=== PATIENT | male | born 1960 | race Caucasian/White ===

== ENCOUNTER 2016-11-11 22:26 | Observation (INO) | payer OTHER ==
[2016-11-11 22:35] VITALS: BMI 31.9
[2016-11-11] MEDS ORDERED: Morphine 2 mg/ml ISec IVP STA (22:43)
[2016-11-11] MEDS ORDERED: Aspirin 325 mg EC Tablets PO STA (22:43)
--- NOTE | 2016-11-11 22:58 | ED PDOC ---
Arrival/HPI - General Historian: Patient, Spouse - History of Present Illness Time/Duration: Prior to Arrival Symptom Onset: Sudden Symptom Course: Worsening Quality: Aching, Pressure Severity Level: Severe Activities at Onset: Rest Context: Home <Micaela Pennington - Last Filed: 11/12/16 00:54> <Félix Card - Last Filed: 11/12/16 01:25> - General Chief Complaint: Chest Pain Time Seen by Provider: 11/11/16 22:28 - History of Present Illness Narrative History of Present Illness (Text): 11/11/16 22:59 This is a 56Y M with PMH HTN, dyslipidemia, GERD, asthma here for sudden L sided chest pain. He reports he was sitting at home playing on phone when the pain occurred. He reports it radiates down into his L arm. He also complains of headache and epigastric abdominal pain. He denies vision changes, SOB, n/v/d, numbness/tingling, fever or chills. The pain is worse when lying on his L side. (Micaela Pennington) Past Medical History - Provider Review Nursing Documentation Reviewed: Yes - Travel History Have you recently traveled outside [place] w/in the past 3 mons?: No - Tetanus Immunization Tetanus Immunization: Unknown - Cardiac Hx Cardiac Disorders: Yes (chest pain) Hx Hypertension: Yes - Renal Hx Kidney Stones: Yes - Musculoskeletal/Rheumatological Hx Back Pain: Yes (x 3 yrs) Hx Falls: No Hx Herniated Disk: Yes (work related x3 yrs) - Gastrointestinal Hx Gastrointestinal Disorders: Yes (gastritis) Hx Gastroesophageal Reflux: Yes - Psychiatric Hx Depression: No Hx Emotional Abuse: No Hx Physical Abuse: No Hx Substance Use: No - Past Surgical History Past Surgical History: No Previous - Suicidal Assessment Feels Threatened In Home Enviroment: No <Micaela Pennington - Last Filed: 11/12/16 00:54> Family/Social History - Physician Review Nursing Documentation Reviewed: Yes Family/Social History: Hypertension Smoking Status: Heavy Smoker > 10 Cigarettes Daily Hx Alcohol Use: No Hx Substance Use: No Hx Substance Use Treatment: No <Micaela Pennington - Last Filed: 11/12/16 00:54> Allergies/Home Meds <Micaela Pennington - Last Filed: 11/12/16 00:54> <Félix Card - Last Filed: 11/12/16 01:25> Allergies/Adverse Reactions: Allergies No Known Allergies Allergy (Verified 05/18/14 12:57) Home Medications: Home Meds Medication Instructions Recorded Confirmed Aspirin [Aspirin Chewable] 81 mg PO DAILY 05/18/14 05/18/14 Multivitamin [Multiple Vitamins] 1 tab PO DAILY 05/18/14 05/18/14 Advair Diskus 250/50 05/19/14 05/19/14 Famotidine [Pepcid] 40 PO HS 05/19/14 05/19/14 Hydrochlorothiazide [HCTZ] 12.5 mg PO DAILY 05/19/14 05/19/14 Lansoprazole [Prevacid] 30 PO DAILY 05/19/14 05/19/14 Tramadol Hydrochloride [Tramadol] 50 PO BID 05/19/14 05/19/14 amLODIPine [Norvasc] 5 mg PO DAILY 05/19/14 05/19/14 Review of Systems - Physician Review All systems were reviewed & negative as marked: Yes - Review of Systems Constitutional: Normal. absent: Fatigue, Fevers Eyes: Normal. absent: Vision Changes ENT: Normal. absent: Hearing Changes Respiratory: Normal. absent: SOB, Cough Cardiovascular: Chest Pain Gastrointestinal: Abdominal Pain. absent: Nausea, Vomiting Musculoskeletal: Normal. absent: Arthralgias, Back Pain Skin: Normal. absent: Rash, Pruritis Neurological: Headache. absent: Dizziness Endocrine: Normal. absent: Diaphoresis Psychiatric: Normal. absent: Anxiety, Depression <Micaela Pennington - Last Filed: 11/12/16 00:54> Physical Exam Vital Signs Reviewed: Yes Temperature: Afebrile Blood Pressure: Hypertensive Pulse: Regular Respiratory Rate: Normal Appearance: Positive for: Well-Appearing, Non-Toxic, Comfortable Pain Distress: None Mental Status: Positive for: Alert and Oriented X 3 - Systems Exam Head: Present: Atraumatic, Normocephalic Pupils: Present: PERRL Extroacular Muscles: Present: EOMI Conjunctiva: Present: Normal Mouth: Present: Moist Mucous Membranes Neck: Present: Normal Range of Motion Respiratory/Chest: Present: Clear to Auscultation, Good Air Exchange, Tender to Palpation (on L side of chest ). No: Respiratory Distress, Accessory Muscle Use Cardiovascular: Present: Regular Rate and Rhythm, Normal S1, S2, Other. No: Murmurs Abdomen: Present: Tenderness (epigastric tenderness ), Normal Bowel Sounds. No : Distention, Peritoneal Signs Back: Present: Normal Inspection Upper Extremity: Present: Normal Inspection. No: Cyanosis, Edema Lower Extremity: Present: Normal Inspection. No: Edema Neurological: Present: GCS=15, CN II-XII Intact, Speech Normal Skin: Present: Warm, Dry, Normal Color. No: Rashes Psychiatric: Present: Alert, Oriented x 3, Normal Insight, Normal Concentration <Micaela Pennington - Last Filed: 11/12/16 00:54> <Félix Card - Last Filed: 11/12/16 01:25> Vital Signs Temp Pulse Resp BP Pulse Ox 11/11/16 23:28 78 20 142/88 96 11/11/16 22:36 97.9 F 77 18 161/101 H 100 Medical Decision Making Re-evaluation Time: 23:45 Reassessment Condition: Improved - Lab Interpretations I have reviewed the lab results: Yes Interpretation: All labs normal - EKG Interpretation Interpreted by ED Physician: Yes Type: 12 lead EKG <GorgeEricMicaela - Last Filed: 11/12/16 00:54> - Lab Interpretations I have reviewed the lab results: Yes - EKG Interpretation Interpreted by ED Physician: Yes Type: 12 lead EKG <KyawFélix - Last Filed: 11/12/16 01:25> ED Course and Treatment: 11/11/16 23:02 Impression: This is a 56Y M with PMH HTN, dyslipidemia, GERD, asthma here for sudden L sided chest pain. Differential Diagnosis included but are not limited to: chest pain r/o ACS Plan: -- EKG -- CXR -- CBC, CMP, Cardiac ISO -- ASA, Morphine -- Reassess and disposition EKG: Ordered, reviewed, and independently interpreted the EKG. Rate : 78 BPM Rhythm : NSR Interpretation : No ST-segment elevations or depressions, no T-wave inversions, normal intervals. Comparison : Similar to previous EKG. Progress Notes: 11/11/16 23:02 Patient reports symptoms have improved, but has headache. Tylenol ordered. Labs within normal limits. Troponin negative x 1. Patient will be admitted for observation to rule out acute coronary syndrome. Discussed plan with patient and agrees with admission. Patient verbalizes understanding. 11/12/16 00:55 Spoke with house doctor, Dr. Soliman who will accept the patient into her service. (Micaela Pennington) Impression: Pt seen and evaluated with medical staff credentialing coordinator. Pt, whose past medical history includes hypertension, dyslipidemia, GERD, and asthma, presented for left-sided chest pain radiating to his left arm, worse when lying on his left side. Also complaining of headache and epigastric pain. Aware and agree with HPI, clinical findings, plan, and management. Plan: -- EKG -- CXR -- Labs, cardiac enzymes -- Aspirin -- Morphine -- Reassess and disposition (Félix Card) - Lab Interpretations Lab Results: 11/11/16 23:04 11/11/16 23:04 Lab Results 11/11/16 23:04: Sodium 139, Potassium 3.8, Chloride 106, Carbon Dioxide 24, Anion Gap 13, BUN 12, Creatinine 0.7, Est GFR ( Amer) > 60, Est GFR (Non- Af Amer) > 60, Random Glucose 131 H, Calcium 8.7, Total Bilirubin 0.3, AST 29, ALT 35, Alkaline Phosphatase 79, Lactate Dehydrogenase 449, Total Creatine Kinase 132, Troponin I < 0.01, Total Protein 6.9, Albumin 3.9, Globulin 3.0, Albumin/Globulin Ratio 1.3 11/11/16 23:04: WBC 7.6 D, RBC 4.44, Hgb 14.2, Hct 40.7 L, MCV 91.7, MCH 32.0, MCHC 34.9, RDW 13.6, Plt Count 216, MPV 9.9, Gran % 59.1, Lymph % (Auto) 31.1, [place] % (Auto) 5.8, Eos % (Auto) 3.7, Baso % (Auto) 0.3, Gran # 4.46, Lymph # 2.4 , [place] # 0.4, Eos # 0.3, Baso # 0.02 - RAD Interpretation Radiology Orders: 11/11/16 23:45 CXR [CHEST PORTABLE] [RAD] Stat - Medication Orders Current Medication Orders: Discontinued Medications Acetaminophen (Tylenol 325mg Tab) 650 mg PO STAT STA Stop: 11/11/16 23:54 Last Admin: 11/12/16 00:00 Dose: 650 mg MAR Pain/Vitals Document 11/12/16 00:00 SS (Rec: 11/12/16 00:00 [id number] Pain Reassessment Is This A Pain ReAssessment? No Sleep Is patient sleeping during reassessment? No Presence of Pain Presence of Pain Yes Location Pain Location Body Clerk Of Court Aspirin (Ecotrin) 325 mg PO STAT STA Stop: 11/11/16 22:44 Last Admin: 11/11/16 23:04 Dose: 325 mg Morphine Sulfate (Morphine) 2 mg IVP STAT STA Stop: 11/11/16 22:44 Last Admin: 11/11/16 23:04 Dose: 2 mg MAR Pain Assessment Document 11/11/16 23:04 SS (Rec: 11/11/16 23:04 [id number] Pain Reassessment Is this a pain reassessment? No Sleep Is patient sleeping during reassessment? No Presence of Pain Presence of Pain Yes Location Pain Location Body Site Chest IVP Administration Document 11/11/16 23:04 SS (Rec: 11/11/16 23:04 [id number]) Charges for Administration # of IVP Administrations 1 - PA / HEEL CUTTER / Resident Statement / has reviewed & agrees with the documentation as recorded. / has examined the patient and agrees with the treatment plan. <Félix Card - Last Filed: 11/12/16 01:25> Disposition/Present on Arrival - Present on Arrival Any Indicators Present on Arrival: No History of DVT/PE: No History of Uncontrolled Diabetes: No Urinary Catheter: No History of Decub. Ulcer: No History Surgical Site Infection Following: None - Disposition Have Diagnosis and Disposition been Completed?: Yes Disposition Time: 23:57 Patient Plan: Admission <Micaela Pennington - Last Filed: 11/12/16 00:54> <Félix Card - Last Filed: 11/12/16 01:25> - Disposition Diagnosis: Chest pain Disposition: HOSPITALIZED Patient Problems: Current Active Problems Problem Status Onset Chest pain Acute Condition: FAIR
[2016-11-11 23:13] LABS: BASO # 0.02 K/mm3 (0.0-2.0); BASO % 0.3 % (0.0-3.0); EOS # 0.3 (0.0-0.7); EOS % 3.7 % (1.5-5.0); GRAN # 4.46 (1.4-6.5); GRAN % 59.1 % (50.0-68.0); HEMATOCRIT 40.7 % (42.0-52.0); LYMPH # 2.4 (1.2-3.4); LYMPH % 31.1 % (22.0-35.0); MEAN CELL VOLUME 91.7 fl (80.0-105.0); MEAN CORPUSCULAR HGB CONC 34.9 g/dl (31.0-37.0); MEAN PLATELET VOLUME 9.9 fl (7.0-11.0); MONO # 0.4 (0.1-0.6); MONO % 5.8 % (1.0-6.0); RED CELL DISTRIBUTION WIDTH 13.6 % (11.5-14.5); WHITE BLOOD COUNT 7.6 10^3/ul (4.5-11.0)
[2016-11-11 23:28] LABS: ALB/GLOB RATIO 1.3 (1.1-1.8); ALKALINE PHOSPHATASE 79 U/L (38-126); ALT/SGPT 35 U/L (7-56); AST/SGOT 29 U/L (17-59); BILIRUBIN,TOTAL 0.3 mg/dL (0.2-1.3); BLOOD UREA NITROGEN 12 mg/dL (7-21); CALCIUM 8.7 mg/dL (8.4-10.5); CARBON DIOXIDE 24 mmol/L (21-33); CHLORIDE 106 mmol/L (98-107); GFR AFRICAN-AMERICAN > 60; GLUCOSE,RANDOM 131 mg/dL (70-110); POTASSIUM 3.8 mmol/L (3.6-5.0); SODIUM 139 mmol/L (132-148); TOTAL PROTEIN 6.9 g/dL (5.8-8.3)
[2016-11-11 23:47] LABS: TROPONIN I < 0.01 ng/mL
[2016-11-12] MEDS ORDERED: Albuterol-Ipratrop 3 mg / 0.5 (3 ml) UD IH PRN (02:52)
--- NOTE | 2016-11-12 03:22 | CP.PCM.HP ---
<SHREYAS SOSA - Last Filed: 11/12/16 05:55> History of Present Illness - History of Present Illness History of Present Illness: Shreyas Sosa DO PGY1 - Internal Medicine H&P CC: Chest pain HPI: 56 yo Welsh speaking M with PMH of HTN, HLD, COPD, GERD, lumbar disk disease, and chronic tobacco abuse presents to ER complaining of left sided CP. CP started earlier today when he was sitting, playing on his phone. Pain is associated with burning pain down the dorsum of his left arm, to his left hand, as well as a headache, which has since resolved. Pain is worse with inspiration , and with lying on his left side. Nothing in particular makes the pain better, though he did not try anything for this pain. Pain is localized mostly to one spot on anterior chest wall, with some similar pain on his back. He has had this problem before, 2 years ago, for which he was admitted for observation, and ultimately determined to be most likely related to abdominal pain 2/2 gastritis. Patient also reports that he has been coughing, with a globus sensation, for the past 2 days. He is also complaining of vague abdominal discomfort, which he has all the time, and he attributes to the pain medications he takes chronically as well as reflux. Currently his CP and arm pain are significantly improved since presenting to the ER, though not completely resolved. He denies SOB, N/V/D/C, diaphoresis, palpitations, dizziness, JEFF, vision changes, anxiety. He also admits to dysuria, and lower abdominal pain that comes and goes. Throughout the exam, patient asked repeatedly if Dr. Gonzalez would see him in the hospital, and was repeatedly told that this would not be the case. He also insisted on leaving in the morning, despite being told that a thorough evaluation may take more time. PMH: HTN, HLD, COPD, GERD, Lumbar disk disease PSH: None Meds: Patient reports taking multiple medications for COPD, including inhalers and pills, as well as medications for HTN, HLD, and chronic back pain, but does not know the names for any of the medications he takes, and did not bring them with him. Soc: Tob 40PYH, current active smoker; ETOH denies; Illicits denies All: NKDA PMD: Dr. Gonzalez Present on Admission - Present on Admission Any Indicators Present on Admission: No Past Patient History - Tetanus Immunizations Tetanus Immunization: Unknown - Past Social History Smoking Status: Heavy Smoker > 10 Cigarettes Daily - CARDIAC Hx Cardiac Disorders: Yes (chest pain) Hx Hypertension: Yes - RENAL Hx Kidney Stones: Yes - MUSCULOSKELETAL/RHEUMATOLOGICAL Hx Back Pain: Yes (x 3 yrs) Hx Falls: No Hx Herniated Disk: Yes (work related x3 yrs) - GASTROINTESTINAL Hx Gastrointestinal Disorders: Yes (gastritis) Hx Gastroesophageal Reflux: Yes - PSYCHIATRIC Hx Depression: No Hx Emotional Abuse: No Hx Physical Abuse: No Hx Substance Use: No Meds Allergies/Adverse Reactions: Allergies Allergy/AdvReac Type Severity Reaction Status Date / Time No Known Allergies Allergy Verified 05/18/14 12:57 Physical Exam - Constitutional Appears: Non-toxic, No Acute Distress - Head Exam Head Exam: ATRAUMATIC, NORMOCEPHALIC - Eye Exam Eye Exam: EOMI, Normal appearance - ENT Exam ENT Exam: Mucous Membranes Moist - Neck Exam Neck exam: Negative for: Lymphadenopathy, Meningismus, Thyromegaly - Respiratory Exam Respiratory Exam: Decreased Breath Sounds, Clear to Auscultation Bilateral, Prolonged Expiratory Phase - Cardiovascular Exam Cardiovascular Exam: RRR, +S1, +S2 - GI/Abdominal Exam GI & Abdominal Exam: Normal Bowel Sounds, Soft, Tenderness (epigastric, suprapubic) - Extremities Exam Extremities exam: Positive for: normal inspection. Negative for: calf tenderness, pedal edema - Neurological Exam Neurological exam: Alert, CN II-XII Intact, Oriented x3 - Psychiatric Exam Psychiatric exam: Normal Affect, Normal Mood - Skin Skin Exam: Dry, Intact Results - Vital Signs Recent Vital Signs: Last Vital Signs Temp 97.9 F 11/11/16 22:36 Pulse 78 11/11/16 23:28 Resp 20 11/11/16 23:28 BP 142/88 11/11/16 23:28 Pulse Ox 96 11/11/16 23:28 - Labs Result Diagrams: 11/12/16 05:00 11/11/16 23:04 Assessment & Plan - Assessment and Plan (Free Text) Assessment: 56 M with PMH of HTN, HLD, COPD, chronic tobacco use, and gastritis presented for CP, admitted for observation to r/o ACS Plan: Chest pain, r/o ACS - Pain is reproducible, with point tenderness, and pleuritic in nature, more likely to be musculoskeletal in nature 2/2 two days of coughing - EKG shows NSR in ER; CXR shows no acute disease, pending official read - Trop negative x1, continue to trend - Repeat EKG in AM - BNP 23.5 - Start ASA, metoprolol - Start Tessalon Perles for cough - Cardio consult requested, appreciate recs Abdominal pain - Patient complaining of epigastric pain and heartburn, likely 2/2 chronic GERD/ gastritis - Reports that he takes Lansoprazole at home, but takes it very inconsistently, often with meals rather than 30-60min before - Start protonix 40 PO daily - Simethicone PRN - Maalox PRN - Continue to monitor, if no improvement, consider CT abd/pelv and GI consult for further workup Dysuria - UA ordered - UCx ordered, pending - Hold Abx until results of UA available h/o COPD - Patient reports using three inhalers and one PO medication at home, but is unsure of what they are - Currently stable, no active wheezing or SOB, no productive cough - Start duonebs q6h PRN h/o HTN, HLD - Patient is unsure of the medications he takes at home - BP currently stable, mildly hypertensive on presentation, improved slightly after pain subsided - Lipid panel ordered Chronic tobacco use - Strongly encouraged smoking cessation - Nicotine patch 21mg daily GI/DVT Ppx Patient seen, discussed, and reviewed with attending <Ruth Soliman - Last Filed: 11/12/16 08:03> Results - Vital Signs Recent Vital Signs: Last Vital Signs Temp 97.6 F 11/12/16 06:00 Pulse 63 11/12/16 06:00 Resp 20 11/12/16 06:00 BP 148/91 H 11/12/16 06:00 Pulse Ox 96 11/12/16 06:00 - Labs Result Diagrams: 11/12/16 05:00 11/11/16 23:04 Labs: Laboratory Results - last 24 hr 11/12/16 11/12/16 11/12/16 03:20 05:00 06:59 WBC 7.5 RBC 4.54 Hgb 14.3 Hct 41.8 L MCV 92.1 MCH 31.5 MCHC 34.2 RDW 13.9 Plt Count 212 MPV 10.1 Gran % 50.8 Lymph % (Auto) 36.4 H [place] % (Auto) 9.3 H Eos % (Auto) 3.2 Baso % (Auto) 0.3 Gran # 3.82 Lymph # 2.7 [place] # 0.7 H Eos # 0.2 Baso # 0.02 NT-Pro-B Natriuret Pep 23.5 Urine Color Yellow Urine Appearance Clear Urine pH 7.0 Ur Specific [place] 1.020 Urine Protein Negative Urine Glucose (UA) Negative Urine Ketones Negative Urine Blood Negative Urine Nitrate Negative Urine Bilirubin Negative Urine Urobilinogen 0.2 Ur Leukocyte Esterase Negative Attending/Attestation - Attestation I have personally seen and examined this patient.: Yes I have fully participated in the care of the patient.: Yes I have reviewed all pertinent clinical information: Yes Notes (Text): 11/12/16 07:58 Agree with documentation and plan. Pt is to get tylenol for his musculoskeletal pain. 11/12/16 08:02
[2016-11-12] MEDS ORDERED: Alum-Mag Hydrox-Simethicone Susp (30 mL) PO ONE (04:14)
[2016-11-12] MEDS ORDERED: Simethicone 80 mg Chewtab PO PRN (05:07)
[2016-11-12] MEDS ORDERED: Alum-Mag Hydrox-Simethicone Susp (30 mL) PO PRN (05:08)
[2016-11-12] MEDS: Pantoprazole 40 mg EC Tab PO SCH (05:24)
[2016-11-12 05:27] LABS: BASO # 0.02 K/mm3 (0.0-2.0); BASO % 0.3 % (0.0-3.0); EOS # 0.2 (0.0-0.7); EOS % 3.2 % (1.5-5.0); GRAN # 3.82 (1.4-6.5); GRAN % 50.8 % (50.0-68.0); HEMATOCRIT 41.8 % (42.0-52.0); LYMPH # 2.7 (1.2-3.4); LYMPH % 36.4 % (22.0-35.0); MEAN CELL VOLUME 92.1 fl (80.0-105.0); MEAN CORPUSCULAR HEMOGLOBIN 31.5 pg (25.0-35.0); MEAN CORPUSCULAR HGB CONC 34.2 g/dl (31.0-37.0); MEAN PLATELET VOLUME 10.1 fl (7.0-11.0); MONO # 0.7 (0.1-0.6); MONO % 9.3 % (1.0-6.0); RED CELL DISTRIBUTION WIDTH 13.9 % (11.5-14.5); WHITE BLOOD COUNT 7.5 10^3/ul (4.5-11.0)
[2016-11-12] MEDS ORDERED: Sodium Chloride 0.9% 1,000 ML IV SCH (06:15)
[2016-11-12 07:22] LABS: URINE BILIRUBIN NEGATIVE (NEGATIVE); URINE BLOOD NEGATIVE (NEGATIVE); URINE GLUCOSE (UA) NEGATIVE (NEGATIVE); URINE KETONE NEGATIVE (NEGATIVE); URINE LEUKOCYTE ESTERASE NEGATIVE Leu/uL (NEGATIVE); URINE PROTEIN NEGATIVE mg/dL (<30 mg/dL); URINE UROBILINOGEN 0.2 E.U./dL (<1 E.U./dL)
[2016-11-12 07:29] LABS: URINE APPEARANCE CLEAR (CLEAR); URINE COLOR YELLOW (YELLOW)
[2016-11-12 08:18] LABS: ALB/GLOB RATIO 1.3 (1.1-1.8); ALKALINE PHOSPHATASE 77 U/L (38-126); ALT/SGPT 39 U/L (7-56); AST/SGOT 24 U/L (17-59); BILIRUBIN,TOTAL 0.5 mg/dL (0.2-1.3); BLOOD UREA NITROGEN 10 mg/dL (7-21); CALCIUM 8.7 mg/dL (8.4-10.5); CARBON DIOXIDE 28 mmol/L (21-33); CHLORIDE 107 mmol/L (98-107); CHOLESTEROL 224 mg/dL (130-200); GFR AFRICAN-AMERICAN > 60; GLUCOSE,RANDOM 105 mg/dL (70-110); MAGNESIUM 2.2 mg/dL (1.7-2.2); PHOSPHOROUS 3.4 mg/dL (2.5-4.5); POTASSIUM 4.9 mmol/L (3.6-5.0); SODIUM 142 mmol/L (132-148); TOTAL PROTEIN 6.8 g/dL (5.8-8.3)
--- NOTE | 2016-11-12 08:27 | RAD ---
HISTORY: chest pain COMPARISON: Comparison made with chest radiograph 05/18/2014 FINDINGS: LUNGS: Poor inspiration with low lung volumes, crowded bronchovascular markings and mild bibasilar atelectasis. PLEURA: No significant pleural effusion identified, no pneumothorax apparent. CARDIOVASCULAR: Heart size is mildly enlarged OSSEOUS STRUCTURES: No significant abnormalities. VISUALIZED UPPER ABDOMEN: Normal. OTHER FINDINGS: None. IMPRESSION: Poor inspiration with low lung volumes, crowded bronchovascular markings and mild bibasilar atelectasis.
[2016-11-12 08:30] LABS: TROPONIN I < 0.01 ng/mL
[2016-11-12] MEDS ORDERED: Lidocaine 2% Inj (20ml) ONE (13:03)
[2016-11-12] MEDS ORDERED: Phenylephrine 10 mg/ml Inj ONE (13:04)
[2016-11-12] MEDS ORDERED: Iodixanol 320 MG/ML 200 ML BOTTLE IV ONE (13:05)
[2016-11-12] MEDS ORDERED: Iodixanol 320 MG/ML 100 ML BOTTLE IV ONE (13:05)
[2016-11-12] MEDS ORDERED: Nitroglycerin 50mg in D5W 0 MG/0 ML BOTTLE IV ONE (13:09)
[2016-11-12] MEDS ORDERED: Midazolam 2 MG/2 ML VIAL ONE (13:38)
--- NOTE | 2016-11-12 14:53 | CON ---
CARDIOLOGY CONSULTATION REASON FOR CONSULTATION: Chest pain. HISTORY OF PRESENT ILLNESS: The patient is a 56-year-old Guamanian male who more a day, has a history of hypertension, hyperlipidemia. He presented because of typical retrosternal chest pain, radiating to his left arm. According to the primary physician, the patient is extremely noncompliant. SOCIAL HISTORY: The patient is a smoker. MEDICATIONS: Aspirin 81 mg once a day, albuterol inhaler q. 6 hours p.r.n., heparin 5000 units subcutaneous twice a day, Lopressor 25 mg once a day, nicotine patch and amlodipine 5 mg once a day. REVIEW OF SYSTEMS: No nausea or vomiting. No fever or chills. PHYSICAL EXAMINATION: GENERAL: The patient is middle-aged male who does not appear to be in any distress at this time. VITAL SIGNS: Blood pressure 149/100, heart rate 63, temperature 97.6, respiration 18. HEENT: Normocephalic. NECK: No JVD. CHEST: Clear. HEART: S1 and S2 regular. ABDOMEN: Soft. EXTREMITIES: No edema. LABORATORY DATA: SMA-7 is within normal limits except for glucose of 131. Two sets of troponins are negative. Triglycerides 242, total cholesterol 224, LDL cholesterol is 143, all are elevated and HDL cholesterol is below normal limit. Hemoglobin and hematocrit are 14.3 and 41.8, white count and platelet count are within normal limit. EKG revealed normal sinus rhythm. ASSESSMENT: 1. Chest pain, myocardial infarction is ruled out. 2. Chronic obstructive pulmonary disease. 3. Hypertension and hyperlipidemia. RECOMMENDATIONS: Continue current aspirin, Lopressor, Norvasc and start Lipitor at 20 mg once a day. Cardiac catheterization was recommended. The procedure and its risks were fully explained to the patient who understood and agreed for procedure. The case was discussed with the primary physician, Dr. Gonzalez, who agreed with the plan and the patient will have cardiac catheterization today. Fer Carr MD
[2016-11-12] MEDS: Sodium Chloride 0.45% 1,000 ML IV SCH (16:50)
--- NOTE | 2016-11-12 18:39 | CARD ---
APPROVED REPORT EKG Measurement Heart [id number] <Conclusion> Normal sinus rhythm Normal ECG
--- NOTE | 2016-11-12 18:57 | CARD ---
APPROVED REPORT EKG Measurement Heart [id number] <Conclusion> Normal sinus rhythm Normal ECG
--- NOTE | 2016-11-12 19:06 | CARD ---
APPROVED REPORT EKG Measurement Heart [id number] [id number] <Conclusion> Normal sinus rhythm Normal ECG
--- NOTE | 2016-11-12 20:18 | CARDCATH ---
PROCEDURE DATE: The patient is a 56-year-old Lib[place] male, who has history of hypertension, hyperlipidemia, and is a smoker who presented because of chest pain. TN was ruled out. Cardiac catheterization was recommended. The procedure and its risks were explained to the patient and his . Patient understood, agreed and signed informed consent. PROCEDURE: After local infiltration with 1% lidocaine, a 6-Scottish sheath was placed in the right femoral artery. Left to right coronary angiography were performed with 6-Scottish JL-4 and JR-4 diagnostic catheters. Left ventriculogram and aortogram were performed with 6-Scottish pigtail catheter. The patient tolerated the procedure well without any complications with angiographic findings artery revealed left main to be normal vessel, left vein trifurcated into medium size LAD, medium size ramus and medium size circumflex artery. LAD was angiographically unremarkable. The ramus intermedius artery had critical stenosis in its proximal to mid segment and the first obtuse marginal branch of the circumflex artery was totally occluded proximally. artery revealed a medium-size dominant vessel that was angiographically unremarkable. Left ventriculogram performed in the YEE projection reveal normal wall motion, ejection fraction estimated at 55%. 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 RECOMMENDATIONS: Case was discussed at length with the patient, his and the primary physician Dr. Gonzalez. The patient will be maintained on aspirin, Lipitor, Lopressor and will be started on Plavix and the patient is scheduled for PCI tomorrow by Dr. Mina whom I reviewed the coronary angiography findings with him. Fer Carr MD cc: Nicholas Gonzalez MD
[2016-11-13 06:07] VITALS: O2SAT 97
[2016-11-13] MEDS: Pantoprazole 40 mg EC Tab PO SCH (06:35)
[2016-11-13] MEDS: Sodium Chloride 0.45% 1,000 ML IV SCH (06:36)
[2016-11-13] MEDS ORDERED: Phenylephrine 10 mg/ml Inj ONE (06:45)
[2016-11-13] MEDS ORDERED: Lidocaine 2% Inj (20ml) ONE (06:46)
[2016-11-13] MEDS ORDERED: Iodixanol 320 MG/ML 200 ML BOTTLE IV ONE (06:46)
[2016-11-13] MEDS ORDERED: Iohexol 350mgl/ml 50 ML ONE (06:46)
[2016-11-13] MEDS ORDERED: Iodixanol 320 MG/ML 100 ML BOTTLE IV ONE (06:46)
[2016-11-13 07:28] LABS: BASO # 0.02 K/mm3 (0.0-2.0); BASO % 0.2 % (0.0-3.0); EOS # 0.3 (0.0-0.7); EOS % 3.2 % (1.5-5.0); GRAN # 4.95 (1.4-6.5); GRAN % 60.3 % (50.0-68.0); HEMATOCRIT 44.1 % (42.0-52.0); LYMPH # 2.4 (1.2-3.4); LYMPH % 28.8 % (22.0-35.0); MEAN CELL VOLUME 90.6 fl (80.0-105.0); MEAN CORPUSCULAR HEMOGLOBIN 31.8 pg (25.0-35.0); MEAN CORPUSCULAR HGB CONC 35.1 g/dl (31.0-37.0); MONO # 0.6 (0.1-0.6); MONO % 7.5 % (1.0-6.0); RED CELL DISTRIBUTION WIDTH 13.5 % (11.5-14.5); WHITE BLOOD COUNT 8.2 10^3/ul (4.5-11.0)
[2016-11-13] MEDS ORDERED: Midazolam 2 MG/2 ML VIAL ONE (07:56)
[2016-11-13 07:59] LABS: ALB/GLOB RATIO 1.3 (1.1-1.8); ALKALINE PHOSPHATASE 85 U/L (38-126); ALT/SGPT 34 U/L (7-56); AST/SGOT 28 U/L (17-59); BILIRUBIN,TOTAL 0.5 mg/dL (0.2-1.3); BLOOD UREA NITROGEN 10 mg/dL (7-21); CARBON DIOXIDE 27 mmol/L (21-33); CHLORIDE 106 mmol/L (98-107); GFR AFRICAN-AMERICAN > 60; GLUCOSE,RANDOM 101 mg/dL (70-110); POTASSIUM 4.5 mmol/L (3.6-5.0); SODIUM 142 mmol/L (132-148); TOTAL PROTEIN 7.4 g/dL (5.8-8.3)
[2016-11-13] MEDS ORDERED: Eptifibatide 20 mg/10mL Inj IVP ONE (08:03)
[2016-11-13] MEDS ORDERED: Nitroglycerin 50mg in D5W 50 MG/250 ML BOTTLE IV ONE (08:03)
[2016-11-13] MEDS ORDERED: Sodium Chloride 0.9% 1,000 ML IV SCH (09:00)
--- NOTE | 2016-11-13 11:00 | PN ---
DATE: 11/13/2016 REASON FOR VISIT: Status post PTCA of ramus intermedius. SUBJECTIVE: The patient denies any post-procedural chest pain, shortness of breath or any palpitation. OBJECTIVE: GENERAL: Lying on the bed, not in apparent distress. VITAL SIGNS: As follows, temperature afebrile, heart rate 63, blood pressure 135/89. HEENT: PERRLA. Extraocular muscles intact. NECK: Supple. No carotid bruits or thyromegaly. CHEST: Clear to auscultation. HEART: S1 and S2 regular. ABDOMEN: Soft. EXTREMITIES: Clubbing and cyanosis negative. LABORATORY DATA: Blood workup as follows, WBC 8.2, hemoglobin 15.5, hematocrit 44.1, platelet count 224. Chemistry shows sodium 142, potassium 4.5, chloride 106, carbon dioxide 27, anion gap of 14, BUN 10, creatinine 0.8. Triglyceride 242, total cholesterol 224, LDL 143, HDL 28. IMPRESSION: A 56-year-old Hungarian male with a past medical history of hypertension, hyperlipidemia, diabetic admitted with unstable angina, yesterday underwent cardiac catheterization by Dr. Fer Carr, found ramus intermedius high-grade stenosis and the proximal segment 90% stenosis and obtuse marginal one was totally occluded so the patient remained successfully percutaneous transluminal coronary angioplasty with ramus with a drug-eluting stent deployed, obtuse margin was attempted but looks like a total chronic occlusion, could not cross the wire. The patient successfully had a PTCA with drug-eluting stent of the ramus intermedius done from the left radial approach. Plan is to continue baby aspirin, Plavix 75 mg daily, increase Lipitor to 80 mg because the patient has a total triglyceride of 242, total cholesterol of 224, and LDL of 143. We will try to lower down LDL less than 70. Continue metoprolol. Continue aspirin, Plavix. Discussed with Dr. Gonzalez. We will also inform Dr. Carr. Discussed with the family. Follow up with Dr. Dr. Carr in a one month, we will increasingly atorvastatin to 80 mg daily. Possibly, the patient will be discharged today after 3 p.m. Van Mina MD cc: MD Fer Watson MD
[2016-11-13] MEDS ORDERED: Bacitracin 500 Units/gm Oint Foilpak UD ONE (13:08)
--- NOTE | 2016-11-13 13:14 | PN ---
DATE OF NOTE: 11/12/2016 SUBJECTIVE: The patient was seen, spoke to the patient in same language, and the patient came with chest pain, left sided, goes to his left jaw and left arm. The patient had the pain for 30 minutes, pain comes and goes. The patient also had stress test done, was 3 years ago; however, these persistent symptoms and recurrent, especially with multiple risk factors, as per discussion the patient necessitate more cardiac interventions including maybe a stress test or cardiac cath as per recommendation by textile coating machine operator. The patient denied any short of breath. He decreased smoking. He is noncompliant with medications or with the appointment. The patient's EKG was normal sinus rhythm. PHYSICAL EXAMINATION: VITAL SIGNS: Temperature is 97.9, heart rate 71, blood pressure 131/72, respirations 18. HEAD AND NECK: Normal. No JVD. No thyromegaly. CHEST: Clear. Good air entry. CARDIAC: First sound and second sound normal. ABDOMEN: Soft, obese, nontender. EXTREMITIES: No edema. NEUROLOGICAL: Normal. LABORATORY STUDIES: The patient had white count 7.5, hemoglobin 13.3, hematocrit 41.8, platelets are 212. His chemistry is noted for sodium 142, potassium 4.9, chloride 107, bicarb 28, BUN 10, creatinine 0.8. The patient's LDL is high at 143 and total cholesterol is 224, HDL is low. Liver function test was normal. Troponin was negative x2. IMPRESSION AND PLAN: 1. This is a 56-year-old obese, history of hypertension, smoking, male, with chest pain, recurrent. We will consult with Dr. Carr, recommend cardiac catheterization and intervention if needed, we will go ahead and proceed with that. Discussed the case with the patient. Risk and benefit explained to the patient as per Dr. Carr and we will continue that. 2. Hypertension, chronic obstructive pulmonary disease, morbid obesity, gastritis. We will continue Nicoderm, continue aspirin, Lipitor, Lopressor, DuoNeb, Protonix and IV fluids, Tylenol p.r.n. and Tessalon Perles. Follow up clinically. Nicholas Gonzalez MD
[2016-11-13 13:50] LABS: BASO # 0.01 K/mm3 (0.0-2.0); BASO % 0.2 % (0.0-3.0); EOS # 0.2 (0.0-0.7); EOS % 3.5 % (1.5-5.0); GRAN # 3.47 (1.4-6.5); GRAN % 54.5 % (50.0-68.0); HEMATOCRIT 42.1 % (42.0-52.0); LYMPH # 2.2 (1.2-3.4); LYMPH % 34.9 % (22.0-35.0); MEAN CELL VOLUME 91.1 fl (80.0-105.0); MEAN CORPUSCULAR HGB CONC 35.2 g/dl (31.0-37.0); MEAN PLATELET VOLUME 9.9 fl (7.0-11.0); MONO # 0.4 (0.1-0.6); MONO % 6.9 % (1.0-6.0); RED CELL DISTRIBUTION WIDTH 13.5 % (11.5-14.5); WHITE BLOOD COUNT 6.4 10^3/ul (4.5-11.0)
[2016-11-13 14:00] LABS: BLOOD UREA NITROGEN 10 mg/dL (7-21); CALCIUM 8.9 mg/dL (8.4-10.5); CARBON DIOXIDE 25 mmol/L (21-33); CHLORIDE 106 mmol/L (98-107); GFR AFRICAN-AMERICAN > 60; GLUCOSE,RANDOM 101 mg/dL (70-110); SODIUM 139 mmol/L (132-148)
[2016-11-13 16:20] VITALS: BP 143/79; PULSE 80; RESP 19; TEMP 98.3
--- NOTE | 2016-11-13 16:34 | CARD ---
APPROVED REPORT Procedure(s) performed: PTCA with Stenting of Ramus Intermedius with SYD HISTORY The patient is a 56 year-old male with a history of : chronic lung disease, previous diagnostic cath, hypertension , dyslipidemia , Hx of Instable angina, had a cardiac Cath done yesterday, today brought for PTCA. INDICATION The indication(s) include : unstable angina . CASE TECHNIQUE The patient was brought electively to the Cardiac Catheterization Laboratory in a fasting state and was prepped and draped in a sterile manner. The left wrist was infiltrated with 2% Lidocaine subcutaneous anesthesia. A 6 Fr Glidesheath (Radial) sheath was inserted into the left radial artery without difficulty. Coronary angiography was performed using coronary diagnostic catheters. The patient tolerated the procedure well and there were no complications associated with the procedure. The first obtuse marginal branch is a small size vessel with diffuse calcification noted throughout this vessel and with significant stenosis. There is a 100% stenosis in the proximal segment. The ramus intermedius artery is a medium size vessel with diffuse calcification noted throughout this vessel and with significant stenosis. There is a 90% stenosis in the proximal to Mid segment. PCI Technique Lesion Anticoagulation was achieved with Heparin. Percutaneous coronary intervention was performed on the ramus intermedius segment. The lesion stenosis prior to intervention was 90% with MARY JANE 2 flow. A 6 Fr XB 3.0 Guide Catheter was used to engage the ostium. BALLOON DILATION A Balloon catheter 2.5 x 10 mm Sprinter RX was inserted and inflated up to 8.00atm for 11seconds. STENT DEPLOYMENT A drug-eluting stent 2.75 x 14 mm Resolute SYD was inserted and inflated up to 10.00atm for 15seconds. POST STENT DEPLOYMENT BALLOON DILATION A Balloon catheter 2.75 x 9 mm Sprinter NC was inserted and inflated up to 12.00atm for 10seconds. Final angiography reveals 0 % stenosis with MARY JANE 3 flow. PCI Technique Lesion 2 Percutaneous Coronary Intervention was performed on the first obtuse marginal branch segment. The lesion stenosis prior to intervention was 100% with MARY JANE 0 flow. A 6 Fr XB 3.5 Guide Catheter was used to engage the ostium. BALLOON DILATION Unable to Cross OM!, BIOLOGY FACULTY MEMBER Conclusion Successful PTCA with SYD of Ramus Intermedius with SYD PTCA of OM1 attempted, BIOLOGY FACULTY MEMBER... unable to cross. Recommendations Cardiac Rehabilitation ReferralDaily ASA with Plavix for at least one year Aggressive Medical TherapyCardiac Risk Reduction Program Weight Loss Reduction Program CC;DRs. Gonzalez/ Bruno
--- NOTE | 2016-11-14 01:21 | CARD ---
APPROVED REPORT EKG Measurement Heart [id number] <Conclusion> Normal sinus rhythm Normal ECG
--- NOTE | 2016-11-16 05:58 | DS ---
The patient came in with chest pain, evaluation by cardiac cath done by Dr. Carr and it shows two-vessel disease, one is completely occluded and one of the circumflex branches, obtuse marginal, it was opened up by balloon angioplasty and a stent was placed in. The patient tolerated the procedure well. There was no any problems. The usual procedure was done by Dr. Carr. Angioplasty and stent placement by Dr. Mina. The patient tolerated the procedure well and there was no complications. The patient was discharged on Plavix and aspirin to be continued for one year. We will follow up as outpatient. During hospitalizations, no complication. The patient was maintained on all of his previous medications and we will see him within a week. PHYSICAL EXAMINATION: On that date is as follows: VITAL SIGNS: Temperature 98, heart rate 80, blood pressure 143/79, and respirations 18. HEAD AND NECK: Normal. No JVD. No thyromegaly. CHEST: Clear. Good air entry. CARDIAC: First sound and second sounds are normal. ABDOMEN: Soft, obese, and nontender. EXTREMITIES: No edema. NEUROLOGICAL: Normal. LABORATORY DATA: White count 6.4, hemoglobin 14.8, hematocrit 42.1, and platelets 211. Chemistry sodium 139, potassium 4, chloride 106, bicarbonate 25, BUN 10, and creatinine 0.7. DISCHARGE DIAGNOSES: 1. Acute coronary syndrome status post stent and balloon angioplasty in obtuse marginal one. Continue Plavix and aspirin. 2. Hypercholesterolemia. 3. Hypertension. 4. Chronic obstructive pulmonary disease. 5. Active smoker. The patient advised to quit smoking, lose weight, and continue preventive measures. Nicholas Gonzalez MD
== END 2016-11-13 16:53 | disposition home or self-care (01) ==
LOC: ED 22:26 → ERH 11-12 00:53 → 2RSO 11-12 03:03
PROVIDERS: ADMIT Internal Medicine; ATTEND Internal Medicine
DX: I25.110 Atherosclerotic heart disease of native coronary artery with unstable angina pectoris (principal); I25.82 Chronic total occlusion of coronary artery; E78.00 Pure hypercholesterolemia, unspecified; I10 Essential (primary) hypertension; J44.9 Chronic obstructive pulmonary disease, unspecified; F17.200 Nicotine dependence, unspecified, uncomplicated; K21.9 Gastro-esophageal reflux disease without esophagitis; E78.5 Hyperlipidemia, unspecified; M51.86 Other intervertebral disc disorders, lumbar region; K29.70 Gastritis, unspecified, without bleeding; R30.0 Dysuria; E66.01 Morbid (severe) obesity due to excess calories; Z68.34 Body mass index [BMI] 34.0-34.9, adult; Z79.82 Long term (current) use of aspirin; Z91.19 Patient's noncompliance with other medical treatment and regimen
CPT/HCPCS: 36415; 71010; 80053; 80061; 81003; 82550; 83615; 83735; 83880; 84100; 84484; 85025; 85175; 85378; 87086; 93005; 93458; 96372; 96374; 99152; 99153; 99285; C1725; C1769; C1874; C1887; C2629; C9600; G0378; J1327; J1644; J2250; J2270; J3010; J7030; J7040; Q9967

== ENCOUNTER 2017-03-19 16:08 | Emergency (ER) | payer OTHER ==
[2017-03-19 16:11] VITALS: BMI 30.4
[2017-03-19 16:22] VITALS: RESP 18; TEMP 98.2; O2SAT 100
[2017-03-19] MEDS ORDERED: Lidocaine 1% Inj (20ml) ONE (16:28)
[2017-03-19] MEDS ORDERED: Sodium Chloride 0.9% 500 ML IV STA (16:30)
[2017-03-19] MEDS ORDERED: TDAP Vaccine 0.5 mL Syr IM ONE (16:33)
--- NOTE | 2017-03-19 16:34 | ED PDOC ---
Arrival/HPI - General Chief Complaint: Abnormal Skin Integrity Time Seen by Provider: 03/19/17 16:15 Historian: Patient EM Caveat: Acuity of Condition - History of Present Illness Narrative History of Present Illness (Text): 03/19/17 16:34 Pt is a 56 yo M BIB his for assessment of a left index finger injury while using a power saw at home. Pt states that he was cutting wood for a bed frame when his hand slipped and the left index finger made contact with the saw blade. Pt reports severe pain and loss of function of the left index finger. Denies altered sensation of the left hand, allergies to medications, tetanus vaccine. Time/Duration: Prior to Arrival Symptom Onset: Sudden Symptom Course: Unchanged Quality: Pressure, Stabbing Severity Level: Moderate, Severe Activities at Onset: Light, Other (while using a power saw) Context: Exertion, Home Past Medical History - Provider Review Nursing Documentation Reviewed: Yes - Travel History Have you recently traveled outside [place] w/in the past 3 mons?: No - Past History Past History: No Previous - Infectious Disease Hx of Infectious Diseases: None - Tetanus Immunization Tetanus Immunization: Unknown - Cardiac Hx Cardiac Disorders: Yes (chest pain) Hx Hypertension: Yes - Pulmonary Hx Respiratory Disorders: Yes Hx Asthma: Yes - Renal Hx Kidney Stones: Yes - Hematological/Oncological Hx Blood Transfusions: No - Musculoskeletal/Rheumatological Hx Back Pain: Yes (x 3 yrs) Hx Falls: No Hx Herniated Disk: Yes (work related x3 yrs) - Gastrointestinal Hx Gastrointestinal Disorders: Yes (gastritis) Hx Gastroesophageal Reflux: Yes - Psychiatric Hx Depression: No Hx Emotional Abuse: No Hx Physical Abuse: No Hx Substance Use: No - Past Surgical History Past Surgical History: No Previous - Anesthesia Hx Anesthesia: No - Suicidal Assessment Feels Threatened In Home Enviroment: No Family/Social History - Physician Review Nursing Documentation Reviewed: Yes Family/Social History: No Known Family HX Smoking Status: Heavy Smoker > 10 Cigarettes Daily Hx Alcohol Use: No Hx Substance Use: No Hx Substance Use Treatment: No Allergies/Home Meds Allergies/Adverse Reactions: Allergies No Known Allergies Allergy (Verified 05/18/14 12:57) Home Medications: Home Meds Medication Instructions Recorded Confirmed Aspirin [Aspirin Chewable] 81 mg PO DAILY 05/18/14 03/19/17 Multivitamin [Multivitamins] 1 tab PO DAILY 05/18/14 03/19/17 Famotidine [Pepcid] 40 mg PO HS 05/19/14 03/19/17 amLODIPine [Norvasc] 5 mg PO DAILY 05/19/14 03/19/17 Atorvastatin [Lipitor] 80 mg PO DAILY 11/13/16 03/19/17 Clopidogrel [Plavix] 75 mg PO DAILY 11/13/16 03/19/17 Metoprolol Tartrate [Lopressor] 25 mg PO BID 11/13/16 03/19/17 Nicotine 14 mg/24 hr [Nicoderm CQ] 21 mg TD DAILY 11/13/16 03/19/17 Review of Systems - Physician Review All systems were reviewed & negative as marked: Yes - Review of Systems Systems not reviewed;Unavailable: Acuity of Condition Constitutional: Normal Eyes: Normal ENT: Normal Respiratory: Normal Cardiovascular: Normal Gastrointestinal: Normal Genitourinary Male: Normal Musculoskeletal: Normal Skin: Laceration (left index finger) Neurological: Normal Endocrine: Normal Hemo/Lymphatic: Normal Psychiatric: Normal Physical Exam Vital Signs Reviewed: Yes Vital Signs Temp Pulse Resp BP Pulse Ox 03/19/17 19:00 86 18 145/65 100 03/19/17 16:22 98.2 F 96 H 18 147/69 100 Temperature: Afebrile Blood Pressure: Normal Pulse: Regular Respiratory Rate: Normal Appearance: Positive for: Uncomfortable Pain Distress: Moderate Mental Status: Positive for: Alert and Oriented X 3 - Systems Exam Head: Present: Atraumatic, Normocephalic Pupils: Present: PERRL Extroacular Muscles: Present: EOMI Conjunctiva: Present: Normal Mouth: Present: Moist Mucous Membranes Neck: Present: Normal Range of Motion Respiratory/Chest: Present: Clear to Auscultation, Good Air Exchange. No: Respiratory Distress, Accessory Muscle Use Cardiovascular: Present: Regular Rate and Rhythm, Normal S1, S2. No: Murmurs Abdomen: Present: Normal Bowel Sounds. No: Tenderness, Distention, Peritoneal Signs Back: Present: Normal Inspection Upper Extremity: Present: Normal Inspection. No: Cyanosis, Edema Lower Extremity: Present: Normal Inspection. No: Edema Neurological: Present: GCS=15, CN II-XII Intact, Speech Normal, Normal Sensory Function (left index finger ith sensation intact to the radial aspect and tip of the finger; paresthesia of the ulnar aspect of the distal left index finger) Skin: Present: Warm, Dry, Normal Color, Laceration (left index finger ith sensation intact to the radial aspect and tip of the finger; paresthesia of the ulnar aspect of the distal left index finger). No: Rashes Psychiatric: Present: Alert, Oriented x 3, Normal Insight, Normal Concentration Medical Decision Making ED Course and Treatment: 03/19/17 16:46 Pt is a 56 yo M BIB his for assessment of a left index finger injury while using a power saw at home. Plan: IVF bolus 500cc 2G ancef stat zofran 4 mg portable XR for left index finger tetanus vacc toradol 30mg ivp Pt has intact function of the flexors and extensors along; will likely suture, splint and refer to plastics Procedure Note: 1% lidocaine 10 cc digit block initially while awaiting radiology report; pt had break-through pain shortly thereafter; Marcaine .25% 5 cc digit block given distal and proximal digit Left index finger irrigated and prepped with turnicate for suturing; then using 3.0 ethilon x 2 Suture site and finger was cleaned and dressed using a 3in splint Pt tolerated the procedure well Dispo on Cephalexin [Keflex] 500 mg PO Q12 7 Days #14 capsule Pt was advised to follow up with hand specialist within the Medicaid network; 03/23/17 12:03 03/23/17 12:06 Reassessment Condition: Improved - Lab Interpretations I have reviewed the lab results: Yes - RAD Interpretation Narrative RAD Interpretations (Text): 03/23/17 11:57 XR: displaced comminuted and intraarticular fracture of the proximal aspect of the distal 1st phalanx; dislocation of the 2nd DIP; soft tissue swelling Radiology Orders: 03/19/17 16:28 HAND LEFT 2ND DIGIT (FINGER) [RAD] Stat Veterinary Technician: ED Physician, Radiologist - Medication Orders Current Medication Orders: Discontinued Medications Bupivacaine HCl (Marcaine 0.25%) 0 ml IJ STAT STA Stop: 03/19/17 17:32 Cefazolin Sodium 2 gm/ Sodium (Chloride) 100 mls @ 200 mls/hr IVPB STAT YUE PRN Reason: Protocol Last Admin: 03/19/17 17:11 Dose: 200 mls/hr eMAR Start Stop Document 03/19/17 17:11 LEESA (Rec: 03/19/17 17:11 [email or web address]) Intravenous Solution Start Date 03/19/17 Start Time 17:11 Sodium Chloride (Sodium Chloride 0.9%) 500 mls @ 999 mls/hr IV .Q31M STA Stop: 03/19/17 17:00 Last Admin: 03/19/17 16:57 Dose: 999 mls/hr eMAR Start Stop Document 03/19/17 16:57 RG (Rec: 03/19/17 16:58 [place] [id number]) Intravenous Solution Start Date 03/19/17 Start Time 16:58 Ketorolac Tromethamine (Toradol) 30 mg IVP STAT STA Stop: 03/19/17 16:27 Last Admin: 03/19/17 16:42 Dose: 30 mg MAR Pain Assessment Document 03/19/17 16:42 RG (Rec: 03/19/17 16:50 [place] [id number]) Pain Reassessment Is this a pain reassessment? Yes Sleep Is patient sleeping during reassessment? No Presence of Pain Presence of Pain Yes Pain Scale Used Pain Scale Used Numeric Location Left, Right or Bilateral Left Pain Location Body Facilities Coordinator Description Description Throbbing Intensity of Pain at present 10 Pain Behavior Moaning Aggravating Factors Contant IVP Administration Document 03/19/17 16:42 RG (Rec: 03/19/17 16:50 [place] [id number]) Charges for Administration # of IVP Administrations 1 Re-Assess: [facility] Pain Assessment Document 03/19/17 17:42 RG (Rec: 03/19/17 18:31 [place] [id number]) Pain Reassessment Is this a pain reassessment? Yes Sleep Is patient sleeping during reassessment? No Presence of Pain Presence of Pain Yes Pain Scale Used Pain Scale Used Numeric Location Left, Right or Bilateral Left Pain Location Body Site Hand Description Description Dull Intensity of Pain at present 2 Ondansetron HCl (Zofran Inj) 4 mg IVP STAT STA Stop: 03/19/17 16:33 Last Admin: 03/19/17 16:52 Dose: 4 mg IVP Administration Document 03/19/17 16:52 RG (Rec: 03/19/17 16:57 [place] [id number]) Charges for Administration # of IVP Administrations 1 Tetanus/Reduced Diphtheria/Acell Pertussis (Boostrix Vaccine Inj) 0.5 ml IM .ONCE ONE Stop: 03/19/17 16:34 Last Admin: 03/19/17 18:59 Dose: 0.5 ml Immunization Registry Document 03/19/17 18:59 RG (Rec: 03/19/17 18:59 [email or web address] Immunization Registry Consent Date 03/19/17 - Procedure PROCEDURE NOTE (Text): 03/23/17 12:04 1% lidocaine 10 cc digit block initially while awaiting radiology report; pt had break-through pain shortly thereafter; Marcaine .25% 5 cc digit block given distal and proximal digit Left index finger irrigated and prepped with turnicate for suturing; then using 3.0 ethilon x 2 Suture site and finger was cleaned and dressed using a 3in splint Pt tolerated the procedure well Disposition/Present on Arrival - Present on Arrival Any Indicators Present on Arrival: Yes History of DVT/PE: No History of Uncontrolled Diabetes: No Urinary Catheter: No History of Decub. Ulcer: No History Surgical Site Infection Following: None - Disposition Have Diagnosis and Disposition been Completed?: Yes Diagnosis: Fracture, finger, distal phalanx, Laceration Disposition: HOME/ ROUTINE Disposition Time: 19:00 Patient Plan: Discharge Condition: STABLE Discharge Instructions (ExitCare): Oxycodone/Acetaminophen (By mouth), Care For Your Stitches (ED), Finger Laceration (ED), Avulsion Fracture (ED) Additional Instructions: Please read and follow the handouts that we have provided in caring for your wound. We advise that you follow up with a hand specialist in your network which can be found by calling the phone number on the back of your Medicaid card. You have been prescribed Percocet to manage your pain for the next 3 days. If you have any increase in pain, loss of function, fever and chills, return to the emergency dept for evaluation. All the best in your recovery. Prescriptions: Cephalexin [Keflex] 500 mg PO Q12 7 Days #14 capsule Ondansetron [Zofran] 4 mg PO Q8H 7 Days #21 tab Oxycodone HCl/Acetaminophen [Percocet 7.5-325 mg Tablet] 1 each PO QD6 3 Days # 12 tablet Referrals: Nicholas Gonzalez MD [Primary Care Provider] - Follow up with primary Forms: [employer] ([place]i)
[2017-03-19] MEDS ORDERED: ceFAZolin 2 GM in Sodium Chloride 0.9% 100 ML IVPB SCH (16:45)
[2017-03-19] MEDS ORDERED: Bupivacaine 0.25% Inj(30mL) IJ STA (17:31)
--- NOTE | 2017-03-19 17:34 | RAD ---
PROCEDURE: Left Index finger radiographs. HISTORY: injury COMPARISON: None. TECHNIQUE: AP radiograph of the left hand, as well as spot oblique and lateral images of index finger were obtained. FINDINGS: LEFT INDEX FINGER: Displaced comminuted and intra-articular fracture of the proximal aspect distal 1st phalanx. JOINTS: Dislocation at the 2nd DIP. SOFT TISSUES: Soft tissue swelling. OTHER FINDINGS: None. IMPRESSION: Displaced comminuted and intra-articular fracture of the proximal aspect distal 1st phalanx. Dislocation at the 2nd DIP. Soft tissue swelling.
[2017-03-19 19:01] VITALS: BP 145/65; PULSE 86
== END 2017-03-19 19:58 | disposition home or self-care (01) ==
LOC: ED 16:08
DX: S62.631A Displaced fracture of distal phalanx of left index finger, initial encounter for closed fracture (principal); S61.311A Laceration without foreign body of left index finger with damage to nail, initial encounter; W27.0XXA Contact with workbench tool, initial encounter; Y93.H3 Activity, building and construction; Y92.008 Other place in unspecified non-institutional (private) residence as the place of occurrence of the external cause; Z23 Encounter for immunization
CPT/HCPCS: 12001; 29130; 73140; 90471; 90715; 96374; 96375; 99284; J0690; J1885; J2405; J7040